=== PATIENT | female | born 1965 | race Caucasian/White ===

== ENCOUNTER 2020-11-19 12:44 | Emergency (ER) | payer OTHER ==
[2020-11-19 13:42] LABS: #Lymphocytes 1.8 thou/uL (1.20-3.40); #Monocytes 0.3 thou/uL (0.11-0.59); #Neutrophils 3.2 thou/uL (1.40-6.50); %Basophils 0.8 % (0.0-1.0); %Eosinophils 0.8 % (0.0-10.0); %Lymphocytes 32.9 % (21.0-51.0); %Monocytes 6.2 % (0.0-10.0); %Neutrophils 59.3 % (42.0-75.0); Hemoglobin 13.1 g/dL (12.0-16.0); Mean Corpuscular HGB CONC 32.5 g/dL (32.0-36.0); Mean Corpuscular Hemoglobin 31.3 pg (27.0-31.0); Mean Corpuscular Volume 96.3 fL (78.0-98.0); Mean Platelet Volume 7.1 fL (7.4-10.4); Platelet Count 213 thou/uL (130-400); RBC Distribution Width 11.5 % (11.5-14.5); White Blood Cell (WBC) Count 5.4 thou/uL (4.8-10.8)
[2020-11-19] MEDS ORDERED: Aspirin Chewable 81 MG TAB ONE (13:57)
[2020-11-19 14:08] LABS: ALT (SGPT) 21 U/L (8-55); AST (SGOT) 20 U/L (5-34); Albumin 3.8 g/dL (3.5-5.0); Alkaline Phosphatase 73 U/L (40-110); Anion Gap 13 mmol/L (10-20); BUN (Urea Nitrogen) 12 mg/dL (9.8-20.1); Bilirubin, Total 0.6 mg/dL (0.2-1.2); Calc. Creatinine Clearance 0 mL/min (70-130); Calcium 8.7 mg/dL (7.8-10.44); Carbon Dioxide 25 mmol/L (22-29); Chloride 99 mmol/L (98-107); Globulin 2.6 g/dL (2.4-3.5); Glucose 107 mg/dL (70-105); Lipase 27 U/L (8-78); Potassium 3.8 mmol/L (3.5-5.1); Protein, Total 6.4 g/dL (6.0-8.3); Sodium 133 mmol/L (136-145)
[2020-11-19 16:39] LABS: Troponin I Less than 0.010 ng/mL (< 0.028)
== END 2020-11-19 17:10 | disposition home or self-care (01) ==
LOC: NAV ERS 12:44
DX: R53.83 Other fatigue (principal); R06.00 Dyspnea, unspecified; R07.9 Chest pain, unspecified; R51.9 Headache, unspecified
CPT/HCPCS: 71045; 80053; 83690; 84484; 85025; 93005